=== PATIENT | female | born 1960 | race Caucasian/White ===

== ENCOUNTER 2017-01-07 07:47 | Emergency (ER) | payer OTHER, BC ==
[2017-01-07] MEDS ORDERED: MORPHINE SULFATE 4 MG/ML SYRG IM ONE (09:20)
[2017-01-07] MEDS ORDERED: MORPHINE SULFATE 4 MG/ML SYRG ONE (09:22)
[2017-01-07 09:28] VITALS: BP 150/89
--- NOTE | 2017-01-07 11:33 | ERNOTE ---
Trauma/Assault HPI - Narrative Date of Service: 01/07/17 - General Stated Complaint: WC-TRIP, FACE,WRIST,RIB,FOOT PAIN Time Seen by Provider: 01/07/17 08:01 Source: patient Exam Limitations: no limitations - Immun/Allergies/Home Medications Immunizations: IMMUNIZATION HX Immunizations Up to Date Yes History of Influenza Vaccine No Hx Pneumococcal Vaccination No Allergies/Adverse Reactions: Allergies Penicillins Adverse Reaction (Mild, Verified 01/07/17 07:59) RASH simvastatin Adverse Reaction (Mild, Verified 01/07/17 07:59) LEG ACHES Home Medications: HOME MEDICATIONS Citalopram Hydrobromide [Celexa] 40 mg PO DAILY 12/28/14 [Last Taken Unknown] Lisinopril/Hydrochlorothiazide [Zestoretic 20-25 mg Tablet] 1 each PO DAILY [Last Taken Unknown] Naproxen Sodium [Aleve] 220 mg PO BID PRN 12/28/14 [Last Taken Unknown] HYDROcodone/ACETAMINOPHEN [[place] 5-325] 1 each PO Q8H PRN #15 tablet 01/07/17 [ Last Taken Unknown] - History of Present Illness Narrative: patient fell at work just [employer]. She tripped. no syncope. She hit her right face on the table. She struck her right ribs, has left wrist pain and left foot pain. no SOB. No abdominal pain. No neck or back pain. Pain moderate right now. Pain worse with movement. No N/T/W. No LOC or other head injury. no Headache. Method of Injury: Reports: fall Severity: moderate Modifying Factors - (Improves): Reports: rest Modifying Factors - (Worsens): Reports: movement Loss of Consciousness: Reports: no loss of consciousness Associated Symptoms - Trauma: Denies: headache, confusion, vision changes, shortness of breath, abdominal pain Review of Systems - Review of Systems Constitutional: Absent: fever EYE: Absent: vision changes Respiratory: Absent: shortness of breath Cardiology: Absent: chest pain Gastrointestinal/Abdominal: Absent: abdominal pain - Patient's Past Medical History Patient History - Medical: Arthritis, Obesity, UTI'S Patient History - Cardiac/Respiratory: Bronchitis, Hypertension, Hyperlipidemia Patient History - Cancer: No Hx of Cancer Patient History - Surgical Procedures: T & A Patient History - Other: None - Social History Living Situations: home Abuse History: No History of abuse Psych History: Hx of Depression, Current tx/ever been on anti-depressants or anti-anxiety meds Smoking Status: Never smoker Alcohol Use: none Drug Use: none - Immunizations Immunizations Up to Date: Yes Hx Pneumococcal Vaccination: No History of Influenza Vaccine: No Physical Exam - Physical Exam General Appearance: Present: alert, no apparent distress Head Exam: Present: normal inspection, no evidence of injury Eye Exam: Normal inspection: bilateral, PERRL: bilateral - no hyphema Ears, Nose, Throat: Present: other - [place] right zygomatic arch. EOMI. No nasal tendenress. No nasal bone tendenres. No jaw tenderness. No other abnormalities. Absent: pharyngeal erythema, pharyngeal swelling Neck: Present: normal inspection, other - There is no localizing point vertebral tenderness. ROM without localizing pain or tendenress. Cleared clinically. Respiratory: Present: no respiratory distress, normal breath sounds, lungs clear , other - Right lateral low rib tendenress. Cardiovascular/Chest: Present: regular rate, rhythm, normal peripheral pulses Gastrointestinal/Abdominal: Present: normal bowel sounds, nontender, soft, other - No abdominal tenderness. Nothing to suggest solid organ injury Back Exam: Present: normal inspection, normal range of motion, no vertebral tenderness Extremity Exam: Present: other - Tenderness ulnar left wrist. no snuff box tenderness. No hand/elbow or shoulder tendenress. Left dorsum of foot tenderness. no ankle, knee or other bone tenderness. Neurological Exam: Present: alert, normal mood/affect, no motor/sensory deficits Skin Exam: Present: normal color, warm/dry ED Progress - Vital Signs Patient's Vital Signs:: I have reviewed the patient's vital signs. Vital Signs: Vital Signs 01/07/17 01/07/17 07:53 09:27 Temperature 36.2 C L Pulse Rate 98 81 Respiratory 20 16 Rate Blood Pressure 150/89 O2 Sat by Pulse 98 94 Oximetry - X-Ray X-Ray #1 X-Ray: chest Interpretation: Interp. by me X-ray Comments: I reviweed official radiology report X-Ray #2 X-Ray: foot Interpretation: Interp. by me X-ray Comments: I reviewed official radiology report X-Ray #3 X-Ray: wrist Interpretation: Interp. by me X-ray Comments: I reviewed official radiology reports for both left and right wrist - CT/Ultrasound CT/Ultrasound Narrative: I reviewed official radiology report Max/Fac CT - Progress/Reassessment Chief Complaint: Fall Progress Note-Subjective: 01/07/17 11:31 D/W Joseph Mackey, recommends comparison wrist x-ray- done. He recommends flat bottomed shoe and no weight bearing. Done. Recommends wrist splint, cock-up - done. he will schedule MRI and office follow-up. Nothing to suggest need for C-spine or Head CT. No suggestion of intraabdominal injury. No acute neuro -vascular deficit noted. 01/07/17 11:33 I discussed warning signs and reasons to return as well as the need for close f/ u. Departure Clinical Impression: Fall, Wrist injury, Foot injury, Facial injury, Rib pain on right side - Departure Disposition: Home self-care Condition: Stable Instructions: Musculoskeletal Pain Additional Instructions: I have spoken with Orthopedics, you will be called with an MRI appointment and an office appointment. Splints and no weight bearing left leg. Follow-up as directed. No driving with pain medications. Return for increased pain, numbness, tingling, weakness or if your condition worsens or changes in any way. Referrals: Yoana Chavez MD [Primary Care Provider] - Prescriptions: HYDROcodone/ACETAMINOPHEN [[place] 5-325] 1 each PO Q8H PRN #15 tablet PRN Reason: Pain
== END 2017-01-07 11:20 | disposition home or self-care (01) ==
LOC: ER 07:47
PROC: 2W3RX1Z Immobilization of Left Lower Leg using Splint (ICD-10-PCS; principal; 2017-01-07)
PROC: 2W3DX1Z Immobilization of Left Lower Arm using Splint (ICD-10-PCS; 2017-01-07)
DX: S69.92XA Unspecified injury of left wrist, hand and finger(s), initial encounter (principal); W01.190A Fall on same level from slipping, tripping and stumbling with subsequent striking against furniture, initial encounter; Y93.9 Activity, unspecified; Y92.219 Unspecified school as the place of occurrence of the external cause; Y99.0 Civilian activity done for income or pay; S99.922A Unspecified injury of left foot, initial encounter; S09.93XA Unspecified injury of face, initial encounter; R07.81 Pleurodynia; I10 Essential (primary) hypertension; E78.5 Hyperlipidemia, unspecified